=== PATIENT | female | born 1985 | race Caucasian/White ===

== ENCOUNTER 2017-07-24 12:31 | Emergency (ER) | payer OTHER, SELFPAY ==
[2017-07-24] MEDS ORDERED: Acetaminophen 325 MG/10.15 ML UDCUP ONE (12:59)
--- NOTE | 2017-07-24 14:15 | RAD ---
RADIOGRAPH CHEST 2 VIEWS: HISTORY: 32-year-old female with fever, cough, and weakness. FINDINGS: The lungs are clear. The cardiomediastinal silhouette and hilar shadows are normal. There is no ple ural effusion. The osseous structures appear normal. There is no pneumothorax. IMPRESSION: Normal. juan POS: LAZARUS
[2017-07-24 14:28] LABS: #Lymphocytes 1.6 thou/uL (1.20-3.40); #Monocytes 0.4 thou/uL (0.11-0.59); #Neutrophils 3.8 thou/uL (1.40-6.50); %Basophils 0.5 % (0.0-1.0); %Eosinophils 0.3 % (0.0-10.0); %Lymphocytes 27.8 % (21.0-51.0); %Monocytes 6.3 % (0.0-10.0); Hemoglobin 13.6 g/dL (12.0-16.0); Mean Corpuscular HGB CONC 33.8 g/dL (32.0-36.0); Mean Corpuscular Hemoglobin 30.4 pg (27.0-31.0); Mean Corpuscular Volume 89.8 fl (81.0-99.0); Mean Platelet Volume 8.1 fL (7.4-10.4); Platelet Count 182 thou/uL (130-400); RBC Distribution Width 12.1 % (11.5-14.5); Red Blood Cell (RBC) Count 4.49 mill/uL (4.20-5.40); White Blood Cell (WBC) Count 5.8 thou/uL (4.8-10.8)
[2017-07-24] MEDS ORDERED: Dexamethasone 10 MG/ML VIAL ONE (14:30)
[2017-07-24 14:49] LABS: ALT (SGPT) 19 U/L (8-55); AST (SGOT) 26 U/L (5-34); Albumin 3.7 g/dL (3.5-5.0); Alkaline Phosphatase 62 U/L (40-150); Anion Gap 11 mmol/L (10-20); BUN (Urea Nitrogen) 4 mg/dL (7.0-18.7); Bilirubin, Total 0.3 mg/dL (0.2-1.2); Calc. Creatinine Clearance 0 mL/min (70-130); Calcium 8.4 mg/dL (7.8-10.44); Carbon Dioxide 25 mmol/L (22-29); Chloride 103 mmol/L (98-107); Estimated GFR-MDRD Greater than 90; Globulin 2.7 g/dL (2.4-3.5); Glucose 106 mg/dL (70-105); Lipase 17 U/L (8-78); Potassium 3.5 mmol/L (3.5-5.1); Protein, Total 6.4 g/dL (6.0-8.3); Sodium 135 mmol/L (136-145)
[2017-07-24] MEDS ORDERED: Ketorolac Tromethamine 30 MG/ML VIAL ONE (15:51)
== END 2017-07-24 16:11 | disposition home or self-care (01) ==
LOC: ERS 12:31
DX: J11.1 Influenza due to unidentified influenza virus with other respiratory manifestations (principal); G43.909 Migraine, unspecified, not intractable, without status migrainosus; F31.9 Bipolar disorder, unspecified; F90.9 Attention-deficit hyperactivity disorder, unspecified type; F17.210 Nicotine dependence, cigarettes, uncomplicated; Z79.899 Other long term (current) drug therapy; Z87.442 Personal history of urinary calculi
CPT/HCPCS: 36415; 71046; 80053; 83605; 83690; 85025; 87081; 87430; 87804; 96361; 96374; J1100; J1885

== ENCOUNTER 2018-11-05 22:10 | Observation (INO) | payer BC, SELFPAY ==
[2018-11-05] MEDS ORDERED: Ketorolac Tromethamine 30 MG/ML VIAL ONE (22:34)
[2018-11-05 23:05] LABS: #Eosinphils 0.1 thou/uL (0.0-0.7); #Lymphocytes 2.5 thou/uL (1.20-3.40); #Monocytes 1.2 thou/uL (0.11-0.59); #Neutrophils 9.2 thou/uL (1.40-6.50); %Basophils 0.1 % (0.0-1.0); %Eosinophils 0.7 % (0.0-10.0); %Lymphocytes 19.2 % (21.0-51.0); %Monocytes 9.5 % (0.0-10.0); %Neutrophils 70.5 % (42.0-75.0); Hemoglobin 12.9 g/dL (12.0-16.0); Mean Corpuscular HGB CONC 34.2 g/dL (32.0-36.0); Mean Corpuscular Volume 90.6 fL (78.0-98.0); Mean Platelet Volume 8.1 fL (7.4-10.4); Platelet Count 281 thou/uL (130-400); RBC Distribution Width 11.4 % (11.5-14.5); Red Blood Cell (RBC) Count 4.15 mill/uL (4.20-5.40); White Blood Cell (WBC) Count 13.1 thou/uL (4.8-10.8)
[2018-11-05 23:08] LABS: Bilirubin Negative (Negative); Blood, Urine Small (Negative); Clarity CLEAR (Clear); Glucose, Urine (Dipstick) Negative (Negative); Leukocyte Small (Negative); Nitrite Negative (Negative); Pregnancy Test - Urine (BHCG) Negative (Negative); Pregu Control Background? CLEAR/WHITE (CLR/WHITE); Pregu Control Bar Appear? YES (CONTROL BAR); Protein, Urine (Dipstick) Trace mg/dL (Neg-Trace); Specific Gravity 1.017 (1.002-1.036); Specific Gravity, Urine 1.017 (1.002-1.036); Urobilinogen 0.2 mg/dL (0.2-1.0)
[2018-11-05 23:09] LABS: Bacteria/HPF 1+ HPF (None Seen); Hyaline Casts/LPF 0-3 HYALINE CAST LPF (0-3 Hyaline); Pathc Cast-AUWi Flag 0.13 (0-2.49); Squamous Epithelial 0-3 HPF (0-3); WBC/HPF 21-50 HPF (0-3)
[2018-11-05 23:25] LABS: ALT (SGPT) 8 U/L (8-55); AST (SGOT) 8 U/L (5-34); Alkaline Phosphatase 81 U/L (40-150); Anion Gap 12 mmol/L (10-20); BUN (Urea Nitrogen) 9 mg/dL (7.0-18.7); Bilirubin, Total 0.5 mg/dL (0.2-1.2); Calc. Creatinine Clearance 0 mL/min (70-130); Calcium 9.4 mg/dL (7.8-10.44); Carbon Dioxide 25 mmol/L (22-29); Chloride 102 mmol/L (98-107); Estimated GFR-MDRD Greater than 90; Globulin 3.1 g/dL (2.4-3.5); Glucose 101 mg/dL (70-105); Lipase 14 U/L (8-78); Potassium 3.5 mmol/L (3.5-5.1); Protein, Total 7.1 g/dL (6.0-8.3); Sodium 135 mmol/L (136-145)
--- NOTE | 2018-11-05 23:45 | CT ---
Noncontrast enhanced images abdomen pelvis. HISTORY: Flank pain. Noncontrast enhanced images of the abdomen pelvis demonstrates the lung bases to be unremarkable. No evidence of free intraperitoneal air seen. The liver and spleen are unremarkable. The gallbladder is been surgically removed. Adrenal glands unremarkable. The pancreas is unremarkable. The kidneys contain numerous bilateral renal calculi. Neither right or left ureters is significantly distended. The left ureter along its entire course is not completely visualized. There is a approximately 5 mm left area of calcification possibly in the mid to distal left ureter or outside of it. I cannot confirm definitively as the surrounding soft tissues obscure portions of the left ureter. If there is concern for obstructing renal calculi correlate with CT IVP and urological consul tation. No evidence of pelvic lymphadenopathy seen. IMPRESSION: possible left pelvic or ureteral calculi.
[2018-11-06] MEDS ORDERED: Morphine 2 MG/ML SYRINGE ONE (00:21)
[2018-11-06] MEDS: Sodium Chloride 0.9% 1,000 ML IV SCH ×3 (02:01→17:19)
[2018-11-06] MEDS: Morphine 4 MG/ML VIAL SLOW IVP PRN ×3 (07:22→10:35)
[2018-11-06] MEDS ORDERED: Hydrocortisone Sod Succ/PF 100 mg/2 ml Vial IVP SCH ×2 (08:15→12:15)
[2018-11-06] MEDS ORDERED: diphenhydrAMINE 50 MG/ML VIAL IVP SCH ×2 (08:15→12:15)
[2018-11-06] MEDS ORDERED: Non-Formulary Item 1 EACH (Dextroamphetamine/Amphetamine [Adderall 20 Mg Tablet] 20 MG) PO SCH (09:00)
[2018-11-06] MEDS ORDERED: Non-Formulary Item 1 EACH (Bupropion Hcl [Wellbutrin Xl] 300 MG) PO SCH (09:00)
--- NOTE | 2018-11-06 12:35 | PRG ---
consult DATE OF SERVICE: 11/06/2018 HISTORY OF PRESENT ILLNESS: Ms. Rizzo is a 33-year-old female with prior history of kidney stones, she presented with 3- to 4-day history of left lower quadrant and flank pain. She previously underwent stone surgery back in 2006 or 2007. She states that this was performed at [facility] with Dr. Martin. Has not seen him subsequently. She had history of fever of 102 at home, her current vital signs are stable. Urine culture has been obtained by the emergency room. CT in the emergency room demonstrated multiple bilateral renal calculi, left greater than right, there is a left ureteral calculi; however, no evidence of hydronephrosis , 5 mm at the level of S1 to ureter. She continues to have some discomfort, however , currently managed. She is admitted due to UA demonstrating 1+ bacteria for ureteral stent placement given she has a ureteral stone with likely infection process. Denies dysuria, gross hematuria, or recurrent UTI symptoms. PAST MEDICAL HISTORY: Include; 1. History of kidney stones. 2. Fibromyalgia. 3. Migraines. 4. Asthma. SURGICAL HISTORY: 1. Tubal ligation. 2. Sinus. 3. Left ankle. 4. Cholecystectomy. 5. Tonsillectomy. 6. Prior history of ESWL vs ureteroscopy by Dr. Martin in the remote past. ALLERGIES: SHE IS ALLERGIC TO NAPROXEN, CEFPROZIL, IODINE, LATEX, PINEAPPLE, SHELLFISH DERIVATIVES. PER THE PATIENT, IODINE WAS USED TOPICAL AND SHE DID BREAK OUT ONTO A RASH. SHE IS UNSURE REGARDING IODINE INTRAVENOUS ALLERGY. SOCIAL HISTORY: She is single, recently . G3, P3. Occasional smoker. She is a regional safety manager at [employer] HOME MEDICATIONS: Include; 1. Wellbutrin. 2. Albuterol. PHYSICAL EXAMINATION: VITAL SIGNS: On presentation, she is afebrile. Vital signs are stable. GENERAL: The patient is resting comfortably, easily arousable; however, appears somewhat fatigued. HEENT: Grossly unremarkable. HEART: Regular rate. LUNGS: Clear. ABDOMEN: Soft. Subjective discomfort in the left lower quadrant. : Deferred at this time. EXTREMITIES: No cyanosis, clubbing, or edema. NEUROLOGIC: No gross focal deficits. PSYCHIATRIC: Appears to be appropriate and intact. PERTINENT LABORATORY DATA: White count 13, hemoglobin 12, and platelet 281. Creatinine 0.7. UA demonstrates 1+ bacteria, 7-10 rbc's, 20-50 wbc's, no epithelials, negative nitrites, and trace leukocytes. Culture is pending. She was provided Rocephin from the emergency room and currently on ciprofloxacin. PERTINENT IMAGING STUDIES: CT of the abdomen and pelvis stone protocol, which I reviewed myself, demonstrates bilateral renal calculi, a left 5 mm calcific density in the mid distal ureter with no hydronephrosis. Per my review, the right kidney has some hyperdensity consistent with early nephrocalcinosis, right punctate renal lithiasis. No evidence of right hydronephrosis. Left kidney has numerous punctate renal calculi about 6-7 in number, largest in the left lower pole about 4 mm, left distal S2 5 mm stone. IMPRESSION AND PLAN: Ms. Rizzo is a 33-year-old female with history of recurrent kidney stone, admitted for left flank pain with UA demonstrating bacteria, consistent with urinary tract infection. She has a 5-mm left distal ureteral stone, although it is not hydronephrotic, she has discomfort in presence of urinary tract infection. It would be prudent to place a ureteral stent as impending ureteral obstruction can occur, resulting in SIRS picture. Moreover, she has a history of fever. She desires to proceed with ureteral stent and is in full understanding regarding staged ureteroscopy and laser lithotripsy at a later date. She is n.p.o. for cysto and stent placement today. Continue antibiotics until culture finalized for sensitivity Job ID: [id number] [facility]
[2018-11-06] MEDS ORDERED: Iothalamate Meglumine 60% 50 ML VIAL FS ONE (13:01)
[2018-11-06] MEDS ORDERED: Fentanyl 100 MCG/2 ML VIAL ONE (13:02)
[2018-11-06] MEDS ORDERED: Midazolam HCl 2 mg/2 ml Vial ONE (13:04)
[2018-11-06] MEDS ORDERED: Ioversol 68 % 50 ML VIAL ONE (13:23)
[2018-11-06] MEDS ORDERED: HYDROcodone/Acetaminophen 5/325 mg Tablet PO PRN (13:38)
[2018-11-06] MEDS ORDERED: Mag-Al 1200 mg/1200 mg/30 ML UDCUP PO PRN (13:38)
[2018-11-06] MEDS ORDERED: Phenazopyridine HCl 97.5 MG TABLET PO PRN (13:38)
[2018-11-06] MEDS ORDERED: Oxybutynin 5 MG TAB PO PRN (13:38)
[2018-11-06] MEDS ORDERED: Bisacodyl 10 MG SUPP PR PRN (13:38)
[2018-11-06] MEDS ORDERED: Phenazopyridine HCl 97.5 MG TABLET ONE (13:42)
--- NOTE | 2018-11-06 13:50 | RAD ---
RETROGRADE PYELOGRAM: HISTORY: Left ureteral stent. Renal calculi. FINDINGS: Two portable fluoroscopic spot images are preserved for interpretation. There is contrast injection into a nondilated left upper collecting system and follow-up imaging document left ureteral stent justyn cement. IMPRESSION: 1. Left ureteral stent placement. 2. Nondilated left upper collecting system. POS: OFF
[2018-11-06] MEDS ORDERED: PACU-Morphine 4MG/ML VIAL SLOW IVP PRN (13:53)
[2018-11-06] MEDS ORDERED: Ondansetron HCl/PF 4 MG/2 ML Vial IVP PRN (13:53)
[2018-11-06] MEDS: Bupropion 150 MG XL TAB PO SCH (14:46)
[2018-11-06] MEDS ORDERED: Adderall 20 Mg Tablet PO SCH (15:00)
[2018-11-06] MEDS ORDERED: diphenhydrAMINE 50 MG/ML VIAL ONE (15:15)
[2018-11-06] MEDS ORDERED: Metoclopramide HCl 10 MG/2 ML VIAL ONE (15:15)
[2018-11-06] MEDS ORDERED: Lidocaine 1% PF 5 ML VIAL ONE (15:15)
[2018-11-06] MEDS ORDERED: PROPOFOL 200 MG/20 ML VIAL ONE (15:15)
[2018-11-06] MEDS ORDERED: Ondansetron PF 4 MG/2 ML Vial ONE (15:15)
[2018-11-06] MEDS ORDERED: Dexamethasone 20 MG/5 ML VIAL ONE (15:15)
--- NOTE | 2018-11-06 16:25 | OP ---
DATE OF PROCEDURE: 11/06/2018 PREOPERATIVE DIAGNOSES: 1. History of recurrent kidney stone, presents with left flank pain, history of fever, left mid ureteral calculi at the level of S2 ureter. 2. Nonobstructing bilateral renal calculi: Right hyperdense nephrocalcinosis, non-calyceal, right punctate renal lithiasis, left 6-7 punctate renal calculi, largest in the lower pole, 4 mm. 3. Left S2 ureteral stone, measuring 5 mm. POSTOPERATIVE DIAGNOSES: 1. History of recurrent kidney stone, presents with left flank pain, history of fever, left mid ureteral calculi at the level of S2 ureter. 2. Nonobstructing bilateral renal calculi: Right hyperdense nephrocalcinosis, non-calyceal, right punctate renal lithiasis, left 6-7 punctate renal calculi, largest in the lower pole, 4 mm. 3. Left S2 ureteral stone, measuring 5 mm. PROCEDURES PERFORMED: 1. Cystoscopy. 2. Left retrograde pyelogram. 3. A 6 x 26 double-J ureteral stent placement. ANESTHESIA: LMA. COMPLICATIONS: None apparent. DISPOSITION: To recovery room in stable condition. INDICATIONS FOR PROCEDURE AND HISTORY: Ms. Rizzo is a 33-year-old female, who presented to the emergency room due to 3- to 4-day history of left lower quadrant abdominal discomfort, although CT demonstrates no evidence of hydronephrosis. There is evidence of ureteral calculi at the level of the mid ureter S2 level, with multiple bilateral nonobstructing renal calculi. She has a history of fever of 102. Her labs and vital signs are stable and has been provided broad-spectrum antibiotic therapy and advised regarding stent placement. This is concerned regarding UTI component. Although the stone appears to be nonobstructing, as she has possibility of progressing to SIRS if with non-progression of ureteral calculi. She desired to proceed with stent placement. Risks and complications of the procedure were reviewed with her in detail including, but not limited to, bleeding, pain, infection, injury to adjacent organs, urosepsis. She is in full understanding regarding secondary procedure when urine culture finalized and negative. DESCRIPTION OF PROCEDURE: After an informed consent was signed, the patient was taken to the operating room and placed in a dorsal lithotomy position with the genital area prepped and draped in the usual surgical sterile fashion. A 21- Trinidadian cystoscope was utilized for cystoscopy, which demonstrated normal urethra. Bladder was entered. The UOs were normal in position. The left retrograde pyelogram was performed with Optiray diluted with an open-ended catheter. There was a filling defect at the level of inferior SI joint, consistent with the CT. There was no evidence of hydronephrosis. A 0.035 Sensor wire was placed into the left upper pole and a 6 x 26 double-J ureteral stent was passed without difficulty. She tolerated the procedure well. She will be observed overnight, await final urine culture to be finalized. Continue broad-spectrum antibiotics. We will repeat urine culture likely tomorrow. If negative, we may be able to proceed with ureteroscopy and laser lithotripsy next Sunday of her ureteral calculi as well as possible concomitant treatment of her left lower pole stone. Job ID: [id number] [facility]
[2018-11-06] MEDS: HYDROcodone/Acetaminophen 5/325 mg Tablet PO PRN ×2 (17:19→21:16)
[2018-11-06] MEDS: Famotidine 20 MG TAB PO SCH (21:15)
[2018-11-06] MEDS: Docusate 100 MG CAP PO SCH (21:16)
[2018-11-06 21:35] LABS: Bacteria/HPF None Seen HPF (None Seen); Clarity SL (Clear); Hyaline Casts/LPF 0-3 HYALINE CAST LPF (0-3 Hyaline); RBC/HPF GREATER THAN 50-TNTC HPF (0-3); Specific Gravity, Urine 1.015 (1.005-1.030); Squamous Epithelial 0-3 HPF (0-3); WBC/HPF 21-50 HPF (0-3)
[2018-11-06 21:36] LABS: Bilirubin Negative (Negative); Blood, Urine Large (Negative); Glucose, Urine (Dipstick) 100 mg/dL (Negative); Leukocyte Small (Negative); Nitrite Negative (Negative); Protein, Urine (Dipstick) 100 mg/dL (Neg-Trace); Urobilinogen 0.2 mg/dL (0.2-1.0)
--- NOTE | 2018-11-06 22:23 | HP ---
PRIMARY CARE PHYSICIAN: Dr. Olivia Byers. CHIEF COMPLAINT: Abdominal and flank pain. HISTORY OF PRESENT ILLNESS: This is a 33-year-old female with a history of previous kidney stones, who came in with left abdomen and left flank and left back pain starting about 3-4 days ago, associated with fever up to 102. She did have a little bit of cough and sore throat and runny nose as well. The patient was evaluated in the emergency room. She had evidence of urinary tract infection and also had a CT scan that showed 5 mm likely ureteral calculi on the left without any hydronephrosis. Dr. Woodward was consulted from the emergency room. The patient was put in observation in the hospital. She was given ciprofloxacin in the emergency room along with morphine and Toradol to take care of the pain. Then, Dr. Woodward did take the patient down for uroscopy today. She did put in a left ureteral stent. The patient tolerated that well and is just back to the room now when I went to go examine her. She is a little groggy from the sedation medications from the procedure, but otherwise has a complete resolution of her pain. PAST MEDICAL HISTORY: 1. Previous kidney stones. 2. Fibromyalgia. 3. Asthma. 4. Migraine headaches. PAST SURGICAL HISTORY: 1. Tubal ligation. 2. Sinus surgery. 3. Left ankle surgery. 4. Cholecystectomy. 5. Tonsillectomy. 6. Kidney stone surgery of some sort. PSYCHIATRIC HISTORY: Bipolar disorder and ADHD. SOCIAL HISTORY: The patient reports she smokes occasional cigarettes. Rare alcohol. She denies current drug use though has a history of marijuana and methamphetamine abuse in her chart from previously. FAMILY HISTORY: Positive for coronary artery disease and stroke. ALLERGIES: 1. NAPROXEN. 2. CEFZIL. 3. IODINE. 4. LATEX. 5. PINEAPPLE. 6. SHELLFISH. 7. IMITREX. CURRENT MEDICATIONS: 1. Wellbutrin XL 300 mg each morning. 2. Adderall 20 mg 3 times a day. REVIEW OF SYSTEMS: CONSTITUTIONAL: See HPI. EYES: No double vision or blurred vision. ENT: See HPI. CARDIOVASCULAR: No chest pain or palpitations. PULMONARY: See HPI. No shortness of breath. GASTROINTESTINAL: See HPI. No nausea or vomiting. No diarrhea or constipation. GENITOURINARY: No dysuria or hematuria. MUSCULOSKELETAL: No muscle aches or joint pains other than HPI. SKIN: No rashes or other lesions noted. PHYSICAL EXAMINATION: VITAL SIGNS: Blood pressure 111/65, pulse 71, respirations 20, O2 saturation 98% on room air, temperature 98.7. GENERAL: This is a well-developed, well-nourished female, who is groggy after the procedure, but otherwise in no distress. HEENT: Pupils are equal, round, and reactive to light. Oropharynx is clear without lesions, erythema, or exudate. NECK: Supple. No lymphadenopathy. No thyroid nodules or enlargement. HEART: Regular rate and rhythm. No murmurs, rubs, or gallops. LUNGS: Clear to auscultation bilaterally. No wheezes, crackles, or rhonchi. ABDOMEN: Soft, tender to palpation in the left upper and left lower quadrants without any guarding or rebound tenderness. No masses. No hepatosplenomegaly. Normoactive bowel sounds. EXTREMITIES: No clubbing, cyanosis, or edema. SKIN: No rashes or other lesions noted. NEUROLOGIC: The patient seems to be moving all extremities equally and has no facial droop. LABORATORY DATA: CBC with a white blood cell count of 13,000 with a normal differential, otherwise normal. Complete metabolic panel is notable only for sodium of 135, the rest was completely normal. Urinalysis positive for small blood, small leukocyte esterase, 7 to 10 rbc's, 21 to 50 wbc's and 1+ bacteria. Negative urine test. Her urine culture is pending. CT of the abdomen and pelvis from the emergency room shows possible left pelvic ureteral calculi, though cannot be completely certain as the surrounding soft tissues obscure portions of the left ureter. Retrograde pyelogram during the procedure today shows a left ureteral stent placement with nondilated left upper collecting system. ASSESSMENT AND PLAN: 1. 2. Complicated urinary tract infection due to the kidney stone, currently on Levaquin from Dr. Woodward. We will continue this. The patient is growing back Escherichia coli 50,000 to 75,000 CFUs per mL. Awaiting susceptibilities. 3. Ureterolithiasis, status post stent placement. 4. Bipolar disorder. 5. Attention deficit hyperactivity disorder. 6. Gastrointestinal prophylaxis. We will put the patient on Pepcid while she is in the hospital. 7. Deep venous thrombosis prophylaxis, the patient on SCDs while in bed. 8. Code status. The patient is a full code. Her closest relative who is in the chart is her brother, Rocky Adam. Job ID: [id number]
[2018-11-07] MEDS: Sodium Chloride 0.9% 1,000 ML IV SCH (03:06)
[2018-11-07] MEDS: HYDROcodone/Acetaminophen 5/325 mg Tablet PO PRN ×3 (04:38→13:38)
[2018-11-07 08:18] LABS: Anion Gap 10 mmol/L (10-20); BUN (Urea Nitrogen) 7 mg/dL (7.0-18.7); Calc. Creatinine Clearance 0 mL/min (70-130); Calcium 8.7 mg/dL (7.8-10.44); Carbon Dioxide 25 mmol/L (22-29); Chloride 109 mmol/L (98-107); Estimated GFR-MDRD Greater than 90; Glucose 116 mg/dL (70-105); Potassium 3.8 mmol/L (3.5-5.1); Sodium 140 mmol/L (136-145)
[2018-11-07 08:19] LABS: #Lymphocytes 1.9 thou/uL (1.20-3.40); #Monocytes 0.9 thou/uL (0.11-0.59); #Neutrophils 8.4 thou/uL (1.40-6.50); %Eosinophils 0.1 % (0.0-10.0); %Lymphocytes 16.7 % (21.0-51.0); %Monocytes 8.2 % (0.0-10.0); %Neutrophils 75.1 % (42.0-75.0); Hemoglobin 11.2 g/dL (12.0-16.0); Mean Corpuscular HGB CONC 33.9 g/dL (32.0-36.0); Mean Corpuscular Hemoglobin 31.4 pg (27.0-31.0); Mean Corpuscular Volume 92.6 fL (78.0-98.0); Mean Platelet Volume 8.6 fL (7.4-10.4); Platelet Count 269 thou/uL (130-400); RBC Distribution Width 11.4 % (11.5-14.5); Red Blood Cell (RBC) Count 3.58 mill/uL (4.20-5.40); White Blood Cell (WBC) Count 11.1 thou/uL (4.8-10.8)
--- NOTE | 2018-11-07 08:19 | PRG ---
DATE OF SERVICE: 11/07/2018 SUBJECTIVE: The patient looking well, she states that she feels significantly better. OBJECTIVE: VITAL SIGNS: Stable. She is afebrile. ABDOMEN: Soft, nontender, nondistended. LABORATORY DATA: a.m. labs are pending. Repeat UA demonstrates no evidence of bacteria, 0 to 3 epithelials. Repeat urine culture is pending. Urine culture on admission demonstrates E coli pansensitive. patient currently on ciprofloxacin. IMPRESSION AND PLAN: A 33-year-old female with history of recurrent kidney stone, presented with left lower quadrant pain, history of fever, postop day #1, status post cysto, left retrograde, 6 x 26 stents. As urine culture sensitivities finalized, the patient is cleared from perspective to be discharge to home. Please discharge the patient with ciprofloxacin 500 mg one p.o. b.i.d. for seven days. Inform the patient that if final urine culture negative, which I anticipate as there is no bacteria component. We will proceed with ureteroscopy, laser lithotripsy of her ureteral renal calculi next Sunday. Upon discharge, the patient is to transition for outpatient surgery registration this afternoon. We will send outpatient orders to day stay. Questions encouraged and answered. She agrees. If urine culture demonstrates persistent bacteriuria of concern, I will contact the patient next week to defer surgery if needed. Job ID: [id number] [facility]
--- NOTE | 2018-11-07 08:28 | PDOC.PN ---
- Subjective Encounter Start Date: 11/07/18 Encounter Start Time: 09:30 Subjective: Patient with improvement in symptoms. Still with left flank/back pain. -: No fever. No N/V. No dysuria. Urinating a little more frequently now. - Objective MAR Reviewed: Yes Vital Signs & Weight: Vital Signs (12 hours) Temp Pulse Resp BP BP Pulse Ox 11/07/18 07:50 98.2 F 60 16 101/58 L 97 11/07/18 04:30 98.0 F 50 L 16 100/58 L 99 11/06/18 23:05 65 16 106/63 96 I&O: 11/06/18 11/07/18 11/08/18 06:59 06:59 06:59 Intake Total 1650 Output Total 1650 Balance 0 Result Diagrams: 11/07/18 07:22 11/07/18 07:22 Phys Exam - Physical Examination Constitutional: NAD HEENT: moist MMs Respiratory: no wheezing, no rales, no rhonchi Cardiovascular: RRR, no significant murmur Gastrointestinal: soft, positive bowel sounds TTP left abdomen, left CVA tenderness to percussion Neurological: non-focal, moves all 4 limbs Psychiatric: normal affect, A&O x 3 Dx/Plan (1) Complicated UTI (urinary tract infection) Code(s): N39.0 - URINARY TRACT INFECTION, SITE NOT SPECIFIED Status: Acute Comment: pansensitive E. coli, will need 7 days of Cipro, cleared for d/c by urology (2) Nephrolithiasis Status: Acute Comment: s/p left ureteral stent, needs o/p f/u with Dr. Gomez - Plan cont current plan of care, continue antibiotics d/c home today * . - Discharge Day Encounter end time: 09:45
[2018-11-07 08:37] LABS: INR-International Normal Ratio 1.1; PTT 31.8 SEC (22.9-36.1); Prothrombin Time 13.8 SEC (12.0-14.7)
[2018-11-07] MEDS: Docusate 100 MG CAP PO SCH (08:38)
[2018-11-07] MEDS: Bupropion 150 MG XL TAB PO SCH (08:38)
[2018-11-07] MEDS: Famotidine 20 MG TAB PO SCH (08:39)
[2018-11-07 11:21] VITALS: BP 108/74; TEMP 98
--- NOTE | 2018-11-08 02:03 | DIS ---
DATE OF ADMISSION: 11/06/2018 DATE OF DISCHARGE: 11/07/2018 PRIMARY CARE PHYSICIAN: Dr. Olivia Byers. REASON FOR ADMISSION: UTI with nephrolithiasis. DIAGNOSES AT DISCHARGE: 1. Complicated urinary tract infection with Escherichia coli, pansensitive. 2. Nephrolithiasis with left ureteral stone, status post left ureteral stent. PROCEDURES: 1. CT abdomen and pelvis showing possible left ureteral calculi 5 mm, most likely in the mid to distal left ureter without any hydronephrosis. 2. Left ureteral stent placement with postoperative retrograde pyelogram showing a left ureteral stent and nondilated left upper collecting system. CONSULTATIONS: Urology, Dr. Woodward. SUMMARY OF HOSPITAL COURSE: This is a 33-year-old female with a history of previous kidney stones, who came in with left abdomen and left flank pain for about 3-4 days and a fever up to 102. She was noted to have a likely 5 mm left ureteral calculi without any hydronephrosis or sequela of pyelonephritis. Dr. Woodward was consulted. The patient was given IV Cipro and levofloxacin, and admitted to the hospital. She had a left ureteral stent placed without complication. The patient grew back E coli from her urine which is sensitive to fluoroquinolones. On the day of discharge, the patient was cleared by Dr. Woodward for discharge and is supposed to follow up with her for definitive treatment of the stone with ureteroscopy and laser lithotripsy next week. DISCHARGE MANAGEMENT: Discharged home. FOLLOWUP: Follow up with Dr. Woodward as scheduled. ACTIVITY: As tolerated. DIET: Regular diet. MEDICATIONS: 1. Ciprofloxacin 500 mg twice a day for 7 days. 2. Tramadol 50 mg every 6 hours, 1-2 tablets as needed for pain, 20 tablets dispensed. Job ID: [id number]
== END 2018-11-07 15:57 | disposition home or self-care (01) ==
LOC: ERS 22:10 → 3SE 11-06 01:10
PROVIDERS: ADMIT Hospitalist; ATTEND Hospitalist
PROC: 0T778DZ Dilation of Left Ureter with Intraluminal Device, Via Natural or Artificial Opening Endoscopic (ICD-10-PCS; principal; 2018-11-07)
DX: N20.2 Calculus of kidney with calculus of ureter (principal); N39.0 Urinary tract infection, site not specified; B96.20 Unspecified Escherichia coli [E. coli] as the cause of diseases classified elsewhere; M79.7 Fibromyalgia; G43.909 Migraine, unspecified, not intractable, without status migrainosus; J45.909 Unspecified asthma, uncomplicated; F90.9 Attention-deficit hyperactivity disorder, unspecified type; F31.9 Bipolar disorder, unspecified; F17.210 Nicotine dependence, cigarettes, uncomplicated; Z79.899 Other long term (current) drug therapy; Z88.6 Allergy status to analgesic agent; Z88.8 Allergy status to other drugs, medicaments and biological substances; Z91.013 Allergy to seafood; Z91.018 Allergy to other foods; Z98.890 Other specified postprocedural states; Z91.040 Latex allergy status; Z91.041 Radiographic dye allergy status
CPT/HCPCS: 36415; 74176; 74420; 80048; 80053; 81001; 81003; 81015; 81025; 83690; 85025; 85610; 85730; 87077; 87086; 87186; 96361; 96365; 96366; 96367; 96374; 96375; 96376; C1758; C1769; G0378; J0744; J1100; J1200; J1720; J1885; J1956; J2001; J2250; J2270; J2405; J2704; J2765; J3010; Q9961; Q9967

== ENCOUNTER 2018-11-13 06:23 | Day surgery (SDC) | payer BC ==
[2018-11-07 10:44] VITALS: BMI 23.0
[2018-11-13] MEDS ORDERED: Levofloxacin 500 mg/D5W 100 ml Premix Bag ONE (07:23)
[2018-11-13] MEDS ORDERED: diphenhydrAMINE 50 MG/ML VIAL ONE (07:23)
[2018-11-13] MEDS ORDERED: Hydrocortisone Sod Succ/PF 100 mg/2 ml Vial ONE (07:27)
[2018-11-13] MEDS ORDERED: Gentamicin Sulfate 100 MG in Premix Bag 1 BAG IVPB SCH (07:45)
[2018-11-13] MEDS ORDERED: Fentanyl 100 MCG/2 ML VIAL ONE ×3 (07:58→10:20)
[2018-11-13] MEDS ORDERED: Midazolam HCl 2 mg/2 ml Vial ONE (09:01)
[2018-11-13] MEDS ORDERED: Ioversol 68 % 50 ML VIAL ONE (09:08)
[2018-11-13] MEDS ORDERED: SUGAMMADEX SODIUM 200 MG/2 ML VIAL ONE (09:44)
[2018-11-13] MEDS ORDERED: Ketorolac Tromethamine 30 MG/ML VIAL ONE (10:12)
[2018-11-13] MEDS ORDERED: Oxybutynin 5 MG TAB ONE (10:12)
[2018-11-13] MEDS ORDERED: Phenazopyridine HCl 97.5 MG TABLET ONE (10:13)
--- NOTE | 2018-11-13 10:51 | RAD ---
LEFT RETROGRADE UROGRAM: HISTORY: Ureteral stent replacement. COMPARISON: 11/06/2018. FINDINGS/IMPRESSION: Initial image demonstrates removal of the previously seen left ureteral stent with guidewire in place . The final image demonstrates a left ureteral stent in place with the proximal portion overlying th e expected location of the left renal collecting system and distal portion overlying the urinary blad lucas. No calculus is visualized along the course of the left ureter. Surgical clips overlie the right upper quadrant. Correlation with intraoperative findings is recommended. POS: Jose Alejandro
[2018-11-13] MEDS ORDERED: PROPOFOL 200 MG/20 ML VIAL ONE (13:40)
[2018-11-13] MEDS ORDERED: Dexamethasone 20 MG/5 ML VIAL ONE (13:40)
[2018-11-13] MEDS ORDERED: Naloxone HCl 0.4 mg/ml Vial ONE (13:40)
[2018-11-13] MEDS ORDERED: Glycopyrrolate 0.2 MG/ML 5 ML SYRINGE ONE (13:40)
[2018-11-13] MEDS ORDERED: Ondansetron PF 4 MG/2 ML Vial ONE (13:40)
[2018-11-13] MEDS ORDERED: Lidocaine 1% PF 5 ML VIAL ONE (13:40)
[2018-11-13] MEDS ORDERED: Rocuronium Bromide 10 MG/ML (10ML VIAL) ONE (13:40)
--- NOTE | 2018-11-13 16:10 | OP ---
DATE OF PROCEDURE: 11/13/2018 PREOPERATIVE DIAGNOSES: 1. A 33-year-old female with history of recurrent kidney stone, presented with Escherichia coli urinary tract infection, left 5 mm S2 ureteral stone. 2. Bilateral nonobstructing renal calculi: Right hyperdense nephrocalcinosis, noncalyceal, right punctate renal lithiasis, left 6-7 punctate renal calculi, largest in the lower pole x2 measuring about 4 mm. PROCEDURE PERFORMED: Cystoscopy, left retrograde pyelogram, 6 x 26 double-J ureteral stent exchange on Dangler, rigid ureteroscopy, laser lithotripsy, basket extraction of distal ureteral calculi. ANESTHESIA: General. COMPLICATIONS: None apparent. DISPOSITION: To recovery room in stable condition. SPECIMEN: Stone for chemical analysis. INDICATIONS FOR PROCEDURE AND HISTORY: Ms. Rizzo is a 33-year-old female, who presented to the emergency room due to left flank pain. CT demonstrated no hydronephrosis; however, left ureteral calculi S2. She subsequently did well with antibiotic therapy, she has been on quinolones due to Escherichia coli pansensitive. Repeat urine culture is negative and she presents for ureteroscopy laser lithotripsy. Risks, complications, and indications for the procedure was reviewed with her in detail including, but not limited to bleeding, pain, infection, injury to adjacent organs, urosepsis, possible secondary procedure was reviewed, and she desired to proceed without reservation. DESCRIPTION OF PROCEDURE: After an informed consent was signed, the patient was taken to the operating room, placed in dorsal lithotomy position with the genitalia prepped and draped in the usual surgical sterile fashion. A 21-Spanish cystoscope was utilized for cystoscopy and the pre-existing stent was removed to level of the meatus. A 0.35 Sensor wire was passed through the left ureteral stent and the stent completely removed. She was passively dilated from the stent, and I was able to pass the rigid ureteroscope to the level of the stone at the level of S2 just inferior to the pelvic inlet without difficulty. Using 200 micron laser fiber at this setting, we laser lithotripsied the stone to a smaller caliber. I was able to basket extract with a Zero Tip Nitinol basket atraumatically. This was sent for chemical analysis. A 6 x 26 double-J ureteral stent was passed over a guidewire. It was left on Dangler. Wire was then subsequently removed. Good coil was seen in the bladder and the kidney. Bladder emptied and the stent Dangler taped to the patient's pubic symphysis. She was discharged with [place] 5/325 #30 one to two p.o. q.8 hours p.r.n., oxybutynin 10 mg XL #20 one p.o. daily, Azo p.r.n.; ciprofloxacin until followup appointment, we will provide a course of 10 days given her prior history of UTI; Colace 100 mg one p.o. b.i.d. She will come to my office next week for stent pull on Dangler. Recommend stone metabolic workup after convalescence due to multiple renal calculi. Job ID: [id number] [facility]
== END 2018-11-13 12:50 | disposition home or self-care (01) ==
LOC: SDC 06:23
PROVIDERS: ATTEND Urology
PROC: 0TF68ZZ Fragmentation in Right Ureter, Via Natural or Artificial Opening Endoscopic (ICD-10-PCS; principal; 2018-11-13)
PROC: 0T768DZ Dilation of Right Ureter with Intraluminal Device, Via Natural or Artificial Opening Endoscopic (ICD-10-PCS; principal; 2018-11-13)
PROC: 0TC68ZZ Extirpation of Matter from Right Ureter, Via Natural or Artificial Opening Endoscopic (ICD-10-PCS; principal; 2018-11-13)
DX: N20.2 Calculus of kidney with calculus of ureter (principal)
CPT/HCPCS: 74420; 82365; 88300; J0131; J1100; J1200; J1580; J1720; J1885; J1956; J2001; J2250; J2310; J2405; J2704; J3010; Q9967

== ENCOUNTER 2018-11-20 13:54 | Emergency (ER) | payer BC ==
[2018-11-20] MEDS ORDERED: Ketorolac Tromethamine 30 MG/ML VIAL ONE (14:12)
[2018-11-20] MEDS ORDERED: Ondansetron PF 4 MG/2 ML Vial ONE (14:12)
[2018-11-20] MEDS ORDERED: Morphine 4 MG/ML VIAL ONE (14:27)
[2018-11-20 14:34] LABS: #Eosinphils 0.3 thou/uL (0.0-0.7); #Lymphocytes 3.3 thou/uL (1.20-3.40); #Monocytes 0.5 thou/uL (0.11-0.59); %Basophils 0.5 % (0.0-1.0); %Eosinophils 3.2 % (0.0-10.0); %Lymphocytes 40.7 % (21.0-51.0); %Monocytes 5.9 % (0.0-10.0); %Neutrophils 49.7 % (42.0-75.0); Hemoglobin 13.6 g/dL (12.0-16.0); Mean Corpuscular HGB CONC 33.6 g/dL (32.0-36.0); Mean Corpuscular Hemoglobin 30.7 pg (27.0-31.0); Mean Corpuscular Volume 91.4 fL (78.0-98.0); Mean Platelet Volume 7.5 fL (7.4-10.4); Platelet Count 379 thou/uL (130-400); RBC Distribution Width 11.6 % (11.5-14.5); Red Blood Cell (RBC) Count 4.42 mill/uL (4.20-5.40); White Blood Cell (WBC) Count 8.1 thou/uL (4.8-10.8)
[2018-11-20 14:58] LABS: ALT (SGPT) 11 U/L (8-55); AST (SGOT) 13 U/L (5-34); Albumin 4.1 g/dL (3.5-5.0); Alkaline Phosphatase 81 U/L (40-150); Anion Gap 12 mmol/L (10-20); BUN (Urea Nitrogen) 7 mg/dL (7.0-18.7); Bilirubin, Total 0.4 mg/dL (0.2-1.2); Calc. Creatinine Clearance 0 mL/min (70-130); Calcium 9.6 mg/dL (7.8-10.44); Carbon Dioxide 24 mmol/L (22-29); Chloride 104 mmol/L (98-107); Estimated GFR-MDRD 90; Glucose 97 mg/dL (70-105); Potassium 3.9 mmol/L (3.5-5.1); Protein, Total 7.1 g/dL (6.0-8.3); Sodium 136 mmol/L (136-145)
--- NOTE | 2018-11-20 15:15 | CT ---
EXAM: Abdomen and pelvic CT scan without contrast: HISTORY: Left-sided flank pain and chills with left-sided stent. COMPARISON: 11/05/2018 FINDINGS: The visualized lung bases are clear. Liver: Unremarkable. Gallbladder:Unremarkable. Pancreas:Unremarkable Spleen:Unremarkable. Adrenal glands:Unremarkable. Kidneys:Bilateral mostly small nonobstructing renal calculi. Left-sided ureteral stent with a 0.2 cm diameter calculus in the upper left ureter adjacent to the st ent. Mild dilatation of the left upper renal collecting system. No solid or cystic mass. No evidence for bowel obstruction. No CT evidence for acute appendicitis. The urinary bladder is unremarkable. No abscess, adenopathy, or abnormal fluid collection within the abdomen or pelvis. IMPRESSION: Nonobstructing bilateral renal calculi. Left ureteral stent. 0.2 cm diameter calculus in the left upper ureter adjacent to the stent.
[2018-11-20 16:14] LABS: Bilirubin Negative (Negative); Blood, Urine Large (Negative); Clarity CLOUDY (Clear); Glucose, Urine (Dipstick) Negative (Negative); Leukocyte Moderate (Negative); Nitrite Positive (Negative); Protein, Urine (Dipstick) 100 mg/dL (Neg-Trace); Specific Gravity, Urine 1.008 (1.002-1.036); pH, Urine 6.5 (5.0-9.0)
[2018-11-20 16:16] LABS: Hyaline Casts/LPF 4-6 HYALINE CAST LPF (0-3 Hyaline); Pathc Cast-AUWi Flag 0.95 (0-2.49); RBC/HPF GREATER THAN 50-TNTC HPF (0-3); Squamous Epithelial 0-3 HPF (0-3)
[2018-11-20 16:32] LABS: Bacteria/HPF 1+ HPF (None Seen); Renal Epithelial 0-3 HPF (0-3); Transitional Epithelial 0-3 HPF (0-3)
== END 2018-11-20 15:00 | disposition home or self-care (01) ==
LOC: ERS 13:54
DX: R10.9 Unspecified abdominal pain (principal); G43.909 Migraine, unspecified, not intractable, without status migrainosus; F31.9 Bipolar disorder, unspecified; F90.9 Attention-deficit hyperactivity disorder, unspecified type; F17.210 Nicotine dependence, cigarettes, uncomplicated; Z79.899 Other long term (current) drug therapy
CPT/HCPCS: 36415; 74176; 80053; 81003; 81015; 83605; 85025; 87086; 96361; 96374; 96375; J1885; J2270; J2405

== ENCOUNTER 2018-11-21 09:21 | Outpatient (CLI) | payer BC ==
[2018-11-21 10:13] LABS: BHCG - Serum Negative (NEGATIVE); Pregs Control Background? CLEAR/WHITE (CLR/WHITE); Pregs Control Bar Appear? YES (CONTROL BAR)
--- NOTE | 2018-11-21 20:11 | EKG ---
Test Reason : Blood Pressure : / mmHG Vent. Rate : 057 BPM Atrial Rate : 057 BPM P-R Int : 106 ms QRS Dur : 092 ms QT Int : 426 ms P-R-T Axes : 072 064 061 degrees QTc Int : 414 ms Sinus bradycardia with short AL Otherwise normal ECG When compared with ECG of 26-MAR-2014 20:05, Vent. rate has decreased BY [address] no longer depressed in Inferior leads Nonspecific T wave abnormality no longer evident in Inferior leads Confirmed by RAFAT WANG, SNick ([id number]) on 11/21/2018 8:11:26 PM Referred By: PENELOPE Confirmed By:DR. Amy DOUGLASS MD
== END 2018-11-21 09:22 | disposition home or self-care (01) ==
LOC: LABBT 09:21
PROVIDERS: ATTEND Urology
DX: Z01.818 Encounter for other preprocedural examination (principal); N20.2 Calculus of kidney with calculus of ureter
CPT/HCPCS: 84703; 93005; 93010

== ENCOUNTER 2018-11-27 08:09 | Day surgery (SDC) | payer BC ==
[2018-11-26 09:38] VITALS: BMI 22.8
[2018-11-27] MEDS ORDERED: Levofloxacin 500 mg/D5W 100 ml Premix Bag ONE (08:51)
[2018-11-27] MEDS ORDERED: Gentamicin Sulfate 100 MG in Premix Bag 1 BAG IVPB SCH (09:00)
[2018-11-27] MEDS ORDERED: diphenhydrAMINE 50 MG/ML VIAL ONE (09:30)
[2018-11-27] MEDS ORDERED: Hydrocortisone Sod Succ/PF 100 mg/2 ml Vial ONE (09:33)
--- NOTE | 2018-11-27 10:18 | RAD ---
ABDOMEN SUPINE: INDICATIONS: Preop. CORRELATION: CT from 11/20/2018. FINDINGS: The left double-pigtail ureteral stent is in place. Faint densities overly the left kidney, which pr obably correspond to the calculi noted on CT. The kidneys are obscured by bowel content, and the tin y calcifications are not well seen. The calcification along the upper stent, seen on CT, is not iden tified on this plain film. POS: [facility]
[2018-11-27] MEDS ORDERED: Iothalamate Meglumine 60% 50 ML VIAL FS ONE (10:37)
[2018-11-27] MEDS ORDERED: Fentanyl 100 MCG/2 ML VIAL ONE ×4 (10:37→14:14)
[2018-11-27] MEDS ORDERED: Midazolam HCl 2 mg/2 ml Vial ONE ×2 (11:46→12:02)
[2018-11-27] MEDS ORDERED: HYDROmorphone 0.5 MG/0.5 ML SYRINGE ONE (12:02)
[2018-11-27] MEDS ORDERED: Ioversol 68 % 50 ML VIAL ONE (12:33)
--- NOTE | 2018-11-27 13:17 | RAD ---
RETROGRADE PYELOGRAM: 11/27/18 HISTORY: Stent/stone removal. COMPARISON: 11/13/18. FINDINGS/IMPRESSION: Three portable fluoroscopic spot images are presented for interpretation. There is manipulation of th e left ureter with image documentation. A small left ureteral stone seen on prior CT scan is not defi nitely imaged on this study. POS: [facility]
[2018-11-27] MEDS ORDERED: SUGAMMADEX SODIUM 200 MG/2 ML VIAL ONE (13:22)
[2018-11-27] MEDS ORDERED: Phenazopyridine HCl 97.5 MG TABLET ONE ×2 (13:43→13:44)
[2018-11-27] MEDS ORDERED: Oxybutynin 5 MG TAB ONE (13:44)
[2018-11-27] MEDS ORDERED: Ondansetron HCl/PF 4 MG/2 ML Vial IVP PRN (14:51)
[2018-11-27] MEDS ORDERED: Promethazine HCl 25 MG/ML VIAL IM/IV PRN (14:51)
[2018-11-27] MEDS ORDERED: Non-Formulary Medication 1 EACH PO PRN (14:51)
--- NOTE | 2018-11-27 19:29 | OP ---
DATE OF PROCEDURE: 11/27/2018 PREOPERATIVE DIAGNOSES: 1. A 33-year-old female with history of recurrent kidney stone, status post left ureteroscopy, laser lithotripsy. 2. History of subjective fever and chills. Urine culture negative. 3. Residual left punctate 2 mm calcific density at the level of L3, multiple punctate left renal lithiases, largest in the lower pole about 4 to 5 mm. POSTOPERATIVE DIAGNOSES: 1. A 33-year-old female with history of recurrent kidney stone, status post left ureteroscopy, laser lithotripsy. 2. History of subjective fever and chills. Urine culture negative. 3. Residual left punctate 2 mm calcific density at the level of L3, multiple punctate left renal lithiases, largest in the lower pole about 4 to 5 mm. PROCEDURES PERFORMED: Cystoscopy, left retrograde pyelogram, 6 x 26 double-J ureteral stent exchange on Dangler, ureteroscopy, pyeloscopy, laser lithotripsy of renal calculi, basket extraction of left lower pole stone. ANESTHESIA: General. COMPLICATIONS: None apparent. DISPOSITION: To recovery room in stable condition. SPECIMEN: Stone for chemical analysis. INDICATIONS FOR PROCEDURE AND HISTORY: Ms. Rizzo is a 33-year-old female with history of recurrent kidney stones. She presented previously due to left lower quadrant abdominal pain with subjective history of fever. Urine culture negative. She underwent ureteroscopy, laser lithotripsy, extraction of distal ureteral calculi. She has multiple bilateral renal calculi, nonobstructing in nature. She was scheduled for stent pull on Dangler. However, presented to the ER the night before. CT demonstrated a punctate left proximal ureteral calculi just into the ureteral stent, 2 mm at the level of L3 with left renal calculi as above. She presents today for ureteroscopy, laser lithotripsy, and stone extraction. Repeat urine culture is negative. She has been on empiric prophylactic antibiotic therapy. She desires to proceed. Risks and complications and indications reviewed including but not limited to: Bleeding, pain, infection, injury to adjacent organs, urosepsis, and stricture formation. Questions were encouraged and answered. She desired to proceed without reservation. DESCRIPTION OF PROCEDURE: After an informed consent was signed, the patient was taken to the operating room, placed in a dorsal lithotomy position with the genital area prepped and draped in the usual surgical sterile fashion. She was provided broad-spectrum antibiotic therapy. A 22-Pakistani cystoscope was utilized for cystoscopy, which demonstrated normal urethra and bladder. The previous ureteral stent was removed to the level of the meatus on , and a 0.35 Sensor wire was passed to the left upper pole. At this time, I performed a rigid ureteroscopy to clear the mid to distal ureteral stone, which I did not see any stone nidus structure of concern. The ureter was surveyed to the level of L2. As I was unable to pass further, I then subsequently switched to a flexible ureteroscope. A 10-Pakistani dual-lumen access sheath was passed over the guidewire. Retrograde pyelogram demonstrated confirmation of both safety and working wire in the left kidney. The dual-lumen access sheath was subsequently removed. An 11/13- Pakistani x 28 cm navigator was passed through the working wire Super Stiff into the level of the proximal ureter. This passed without difficulty. Flexible ureteroscopy and pyeloscopy were performed. She had multiple Christo plaques consistent with recurrent stone former. There was a stone nidus adjacent to the papilla, which I laser lithotripsied. The rest of the stones were punctate. Christo plaques did not warrant treatment. In the left lower pole, there was a free-floating 4 to 5 mm stone. This was grabbed with a Zero Tip Nitinol basket and negotiated out the lower pole and extracted through the access sheath intact atraumatically. We then subsequently re-staged the collecting system demonstrating no stone nidus of concern or amenable to treatment. The ureter was then surveyed. I did not see any further stone nidus along the course of the ureter. Special attention was paid to the proximal ureter from L1 to L5. I did not see any stone nidus, and the distal ureter itself was clear of stone debris. She most likely passed that small stone that was seen on prior CT, status post ureteroscopy and laser lithotripsy. At this time , a 6 x 26 double-J ureteral stent was replaced over guidewire. We then subsequently removed the guidewire. As there was endoscopic clearance, I left the stent on . Bladder was completely emptied and the wire removed with good coil in the bladder and kidney. The stent string was taped to the patient's pubic symphysis , and she tolerated the procedure well and transported to the recovery room in stable condition. She will see me next week for stent pull on . She is discharged with Bactrim DS one p.o. b.i.d. for 10 days, oxybutynin XL #10, Azo p.r.n., Colace #30 p.r.n. Hailey 5/325, #30 refill prescription provided. She will return to clinic next Sunday for stent pull on Dangler. Job ID: [id number] MTDD
== END 2018-11-27 15:20 | disposition home or self-care (01) ==
LOC: SDC 08:09
PROVIDERS: ATTEND Urology
PROC: 0T778DZ Dilation of Left Ureter with Intraluminal Device, Via Natural or Artificial Opening Endoscopic (ICD-10-PCS; principal; 2018-11-27)
PROC: 0TF48ZZ Fragmentation in Left Kidney Pelvis, Via Natural or Artificial Opening Endoscopic (ICD-10-PCS; principal; 2018-11-27)
DX: N20.2 Calculus of kidney with calculus of ureter (principal); J45.909 Unspecified asthma, uncomplicated; F41.9 Anxiety disorder, unspecified; F31.9 Bipolar disorder, unspecified; F17.210 Nicotine dependence, cigarettes, uncomplicated; Z87.442 Personal history of urinary calculi; Z98.890 Other specified postprocedural states; Z88.6 Allergy status to analgesic agent; Z88.1 Allergy status to other antibiotic agents; Z91.041 Radiographic dye allergy status; Z91.040 Latex allergy status; Z91.013 Allergy to seafood; Z88.8 Allergy status to other drugs, medicaments and biological substances; Z91.018 Allergy to other foods; Z79.899 Other long term (current) drug therapy
CPT/HCPCS: 74018; 74420; 82365; 88300; C1758; C1769; J1170; J1200; J1580; J1720; J1956; J2250; J3010; Q9961; Q9967

== ENCOUNTER 2019-04-24 14:27 | Outpatient (CLI) | payer BC ==
--- NOTE | 2019-04-24 15:13 | ULT ---
Exam: Bilateral renal ultrasound HISTORY: Recurrent renal calculi. COMPARISON: None FINDINGS: Right kidney: Normal cortical echotexture. No hydronephrosis. Possible nonobstructing echogenic foci in the pelvis. Swatcher focus measures 0.6 cm and is in the upper pole. Focus appears to be cortical and may represent nephrocalcinosis Right kidney measurements: 3.7 x 10.7 x 5.4 cm. Left kidney: Normal cortical echotexture. No hydronephrosis. Echogenic focus in the left renal pelvis measures 0.6 cm and may represent a nonobstructing calculus. Left kidney measurements 4.4 x 4.6 x 11.0 cm. Urinary bladder: Normal mucosa. Bladder uterine jets are identified. IMPRESSION: 1. Echogenic foci in the left or right renal pelvis/cortex. Correlate for nephrocalcinosis versus nep hrolithiasis. No evidence of hydronephrosis.
--- NOTE | 2019-04-24 15:17 | RAD ---
ONE VIEW ABDOMEN: HISTORY: Recurrent renal calculi. FINDINGS: Surgical clips in the right upper quadrant are redemonstrated. Interval removal of a left ureteral stent. Nonspecific bowel gas pattern. No suspicious densities in the abdomen and pelvis. Stable phlebolith i n the right hemipelvis. IMPRESSION: No radiographic evidence of nephrolithiasis or ureterolithiasis. No calcification along the course of the left ureteral stent which has been removed in the interim. Transcribed Date/Time: 04/24/2019 3:25 PM
== END 2019-04-24 14:28 | disposition home or self-care (01) ==
LOC: BICULT 14:27
PROVIDERS: ATTEND Urology
DX: N20.0 Calculus of kidney (principal)
CPT/HCPCS: 36415; 74018; 76770; 80048; 81001; 83970; 84550; 87086

== ENCOUNTER 2019-05-19 08:59 | Outpatient (CLI) | payer BC ==
--- NOTE | 2019-05-19 10:13 | CT ---
CT ABDOMEN AND PELVIS WITHOUT CONTRAST: HISTORY: Calculus of kidney. Right flank pain. COMPARISON: 11/20/2018 FINDINGS: Absence of oral and IV contrast reduces the sensitivity of the exam, particularly for evaluation of s olid organs involved. There has been interval removal of the left-sided ureteral stent noted on the previous study. Bilater al renal calculi are again seen. These are more numerous in the left kidney, measuring up to 3 mm. No calculi are seen in the ureters or the urinary bladder. No hydroureteronephrosis is noted on either side. The patient is post cholecystectomy. No free air or free fluid is seen in the abdomen or pelvis. Uter us and ovaries are present. There is fecal material in the colon. No osteolytic or osteoblastic lesio ns are seen. IMPRESSION: Nonobstructing bilateral renal calculi. POS: [facility]
== END 2019-05-19 09:00 | disposition home or self-care (01) ==
LOC: CT 08:59
PROVIDERS: ATTEND Urology
DX: N20.0 Calculus of kidney (principal)
CPT/HCPCS: 74176

== ENCOUNTER 2019-08-21 12:13 | Emergency (ER) | payer BC ==
[2019-08-21 12:56] LABS: #Basophils 0.1 thou/uL (0.0-0.2); #Eosinphils 0.1 thou/uL (0.0-0.7); #Monocytes 0.4 thou/uL (0.11-0.59); #Neutrophils 5.4 thou/uL (1.40-6.50); %Basophils 0.8 % (0.0-1.0); %Eosinophils 0.9 % (0.0-10.0); %Lymphocytes 24.9 % (21.0-51.0); %Monocytes 5.3 % (0.0-10.0); %Neutrophils 68.1 % (42.0-75.0); Hemoglobin 14.8 g/dL (12.0-16.0); Mean Corpuscular Hemoglobin 31.6 pg (27.0-31.0); Mean Corpuscular Volume 92.9 fL (78.0-98.0); Mean Platelet Volume 7.3 fL (7.4-10.4); Platelet Count 329 thou/uL (130-400); RBC Distribution Width 11.4 % (11.5-14.5); Red Blood Cell (RBC) Count 4.68 mill/uL (4.20-5.40)
[2019-08-21 13:22] LABS: ALT (SGPT) 8 U/L (8-55); AST (SGOT) 10 U/L (5-34); Albumin 4.4 g/dL (3.5-5.0); Alkaline Phosphatase 68 U/L (40-110); Anion Gap 12 mmol/L (10-20); BUN (Urea Nitrogen) 9 mg/dL (7.0-18.7); Bilirubin, Total 0.8 mg/dL (0.2-1.2); Calc. Creatinine Clearance 0 mL/min (70-130); Calcium 9.5 mg/dL (7.8-10.44); Carbon Dioxide 29 mmol/L (22-29); Chloride 103 mmol/L (98-107); Estimated GFR-MDRD 82; Globulin 2.7 g/dL (2.4-3.5); Glucose 66 mg/dL (70-105); Potassium 4.6 mmol/L (3.5-5.1); Protein, Total 7.1 g/dL (6.0-8.3); Sodium 139 mmol/L (136-145)
[2019-08-21 14:35] LABS: Bilirubin Negative (Negative); Blood, Urine Negative (Negative); Clarity Clear (Clear); Glucose, Urine (Dipstick) Normal (Negative); Leukocyte 250 Leu/uL (Negative); Nitrite Negative (Negative); Protein, Urine (Dipstick) 30 mg/dL (Neg-Trace); RBC/HPF 0-3 HPF (0-3); Squamous Epithelial 0-3 HPF (0-3); Urobilinogen Normal mg/dL (Less than 2)
[2019-08-21 14:39] LABS: Pregnancy Test - Urine (BHCG) Negative (Negative); Pregu Control Background? CLEAR/WHITE (CLR/WHITE); Pregu Control Bar Appear? YES (CONTROL BAR); Specific Gravity 1.027 (1.002-1.036)
[2019-08-21 14:52] LABS: Bacteria/HPF 1+ HPF (None Seen); Mucous/LPF 1+ LPF (<2+)
[2019-08-21] MEDS ORDERED: Ketorolac Tromethamine 30 MG/ML VIAL ONE ×2 (14:54→17:00)
--- NOTE | 2019-08-21 16:01 | ULT ---
TRANSABDOMINAL AND TRANSVAGINAL PELVIC ULTRASOUND WITH SHEA SCALE, COLOR FLOW AND SPECTRAL DOPPLER IM AGIN08/21/19 HISTORY: Pelvic pain. The uterus measures 8.1 x 3.8 x 5.6 cm with a tiny amount of free fluid in the endometrial cavity. Th ere is a hypoechoic mass in the uterus near the fundus measuring 1.1 x 1.5 x 1.7 cm, consistent with fibroid. The endometrium measures 5 mm in thickness. The right ovary is not visualized. The left ovary measures 2.3 x 2.2 x 2.8 cm and demonstrates flow. There is a 1.5 cm cyst in the left ovary. There is shadowing noted in the region of the left adnexa where the patient complains of pain. This likely is due to air in adjacent bowel. No free fluid is seen in the cul-de-sac. IMPRESSION: 1. Uterine fibroid. 2. Nonvisualization of the right ovary. 3. Small left ovarian cyst. 4. Tiny amount of free fluid in the endometrial cavity. POS: [facility]
== END 2019-08-21 17:24 | disposition home or self-care (01) ==
LOC: ERS 12:13
DX: N39.0 Urinary tract infection, site not specified (principal); J45.909 Unspecified asthma, uncomplicated; F31.9 Bipolar disorder, unspecified; F90.9 Attention-deficit hyperactivity disorder, unspecified type; F17.210 Nicotine dependence, cigarettes, uncomplicated; G43.909 Migraine, unspecified, not intractable, without status migrainosus; Z87.442 Personal history of urinary calculi; Z79.891 Long term (current) use of opiate analgesic; Z79.1 Long term (current) use of non-steroidal anti-inflammatories (NSAID)
CPT/HCPCS: 36415; 76856; 80053; 81003; 81015; 81025; 85025; 93005; 96374; 96376; J1885

== ENCOUNTER 2019-09-30 09:51 | Outpatient (CLI) | payer BC ==
--- NOTE | 2019-09-30 12:03 | ULT ---
BILATERAL RENAL ULTRASOUND: Date: 09/30/2019 INDICATION: Renal stones. FINDINGS: Both kidneys measure approximately 10.0 cm in length. No hydronephrosis. An echogenic focus in the mid to upper left kidney is consistent with a tiny calculus measuring in th e 3.0 mm range. No other definite calculus seen by ultrasound. Urinary bladder is mildly distended and unremarkable. IMPRESSION: Evidence of small calculus left renal collecting structures. Renal ultrasound otherwise unremarkable. POS: [facility]
--- NOTE | 2019-09-30 12:18 | RAD ---
SUPINE ABDOMEN: Date: 09/30/2019 HISTORY: Kidney stone. COMPARISON: 04/24/2019. FINDINGS: Bowel content obscures both kidneys. The left kidney is especially obscured by overlying stool. There are some subtle densities seen overlying the mid and lower pole of the left kidney which may corresp ond to the small calcifications seen on recent CT. These are unchanged in appearance from the previou s exam of 04/24/2019. No abnormal calcifications overlie the right renal outline. Post cholecystectomy clips. Bowel gas pattern otherwise unremarkable. IMPRESSION: The left kidney is obscured by overlying stool. Subtle small calcific densities overlie the mid and l ower pole which may correspond to the tiny calcification seen on recent CT. POS: [facility]
== END 2019-09-30 09:52 | disposition home or self-care (01) ==
LOC: BICULT 09:51
PROVIDERS: ATTEND Urology
DX: N20.0 Calculus of kidney (principal); N28.89 Other specified disorders of kidney and ureter
CPT/HCPCS: 74018; 76770

== ENCOUNTER 2020-01-06 13:50 | Outpatient (CLI) | payer BC ==
--- NOTE | 2020-01-06 14:52 | CT ---
ABDOMEN CT WITHOUT CONTRAST PELVIC CT WITHOUT CONTRAST: 01/06/20 HISTORY: Renal calculi. Recurrent kidney stones. Patient has undergone four lithotripsies in the last year. COMPARISON: 05/19/19, 11/20/18. FINDINGS: ABDOMEN CT: Clear lung bases. Normal heart size. Normal caliber aorta. Limited evaluation of the slide organs by the lack of IV contrast. Grossly, no abnormality. No gastrohepatic, retrocrural or periportal lymphadenopathy. Gallbladder is surgically absent. No mesenteric mass, lymphadenopathy, free air or free fluid. Limited evaluation of the alimentary by the lack of oral contrast. No bowel obstruction. Normal calib er appendix. Scattered fecal material in a nondistended, nondilated colon. there are bilateral nonobs tructing intrarenal calculi. The largest calculus is in the lower pole of the left kidney and measure s 0.3 cm in maximum dimension. Bilaterally, no obstructive uropathy. When compared to the previous examination, the overall degree of nephrolithiasis has not significantl y changed. The largest calculus is unchanged from 06/06/19. PELVIC CT: Uterus and adnexal structures are grossly unremarkable. No pelvic mass, lymphadenopathy, free air, or free fluid. Decompressed urinary bladder limits evaluation. No lytic or blastic lesions in the osseous structures. IMPRESSION: Bilateral nonobstructing intrarenal calculi. The overall size and number of calcifications in the lef t intrarenal collecting system has not appreciably changed. POS: [facility]
== END 2020-01-06 13:51 | disposition home or self-care (01) ==
LOC: BICCT 13:50
PROVIDERS: ATTEND Urology
DX: N20.0 Calculus of kidney (principal); N28.89 Other specified disorders of kidney and ureter
CPT/HCPCS: 74176; 81001; 87086

== ENCOUNTER 2020-01-09 05:00 | Emergency (ER) | payer BC ==
[2020-01-09] MEDS ORDERED: Metoclopramide HCl 10 MG/2 ML VIAL ONE (05:15)
[2020-01-09] MEDS ORDERED: Ketorolac Tromethamine 30 MG/ML VIAL ONE (05:15)
[2020-01-09] MEDS ORDERED: diphenhydrAMINE 50 MG/ML VIAL ONE (05:15)
== END 2020-01-09 07:00 | disposition home or self-care (01) ==
LOC: ERS 05:00
DX: R51 Headache (principal); J45.909 Unspecified asthma, uncomplicated; F31.9 Bipolar disorder, unspecified; F90.9 Attention-deficit hyperactivity disorder, unspecified type; F17.210 Nicotine dependence, cigarettes, uncomplicated; Z79.899 Other long term (current) drug therapy
CPT/HCPCS: 96361; 96374; 96375; J1200; J1885; J2765

== ENCOUNTER 2021-03-01 14:20 | Outpatient (CLI) | payer BC | END 2021-03-01 14:21 | disposition home or self-care (01) | LOC: RAD 14:20 | PROVIDERS: ATTEND Urology | DX: N20.0 Calculus of kidney (principal) | CPT/HCPCS: 74018 ==

== ENCOUNTER 2024-06-26 15:18 | Emergency (ER) | payer BC ==
[2024-06-26 16:20] LABS: #Basophils 0.03 10x3/uL (0.0-0.2); %Basophils 0.3 % (0.0-1.0); %Eosinophils 0.8 % (0.0-10.0); %Lymphocytes 20.7 % (21.0-51.0); %Monocytes 6.8 % (0.0-10.0); %Neutrophils 70.9 % (42.0-75.0); Hematocrit 42.1 % (36.0-47.0); Hemoglobin 14.2 g/dL (12.0-16.0); Mean Corpuscular HGB CONC 33.7 g/dL (32.0-36.0); Mean Corpuscular Hemoglobin 29.6 pg (27.0-31.0); Mean Corpuscular Volume 87.9 fL (78.0-98.0); Mean Platelet Volume 9.8 fL (7.4-10.4); Platelet Count 322 10x3/uL (130-400); RBC Distribution Width 12.8 % (11.5-14.5); Red Blood Cell (RBC) Count 4.79 mill/uL (4.20-5.40)
[2024-06-26 16:45] LABS: ALT (SGPT) 75 U/L (8-55); AST (SGOT) 101 U/L (5-34); Alkaline Phosphatase 83 U/L (40-110); Anion Gap 16 mmol/L (10-20); BUN (Urea Nitrogen) 8 mg/dL (7.0-18.7); Bilirubin, Total 0.6 mg/dL (0.2-1.2); Calc. Creatinine Clearance 0 mL/min (70-130); Calcium 9.1 mg/dL (7.8-10.44); Carbon Dioxide 22 mmol/L (22-29); Chloride 104 mmol/L (98-107); Estimated GFR 98; Globulin 3.9 g/dL (2.4-3.5); Glucose 63 mg/dL (70-105); Potassium 3.6 mmol/L (3.5-5.1); Protein, Total 7.9 g/dL (6.0-8.3); Sodium 138 mmol/L (136-145)
[2024-06-26] MEDS ORDERED: Acetaminophen 500 MG TAB ONE (17:18)
[2024-06-26] MEDS ORDERED: HYDROcodone/Acetaminophen 5/325 mg Tablet ONE (17:18)
[2024-06-26] MEDS ORDERED: Ketorolac Tromethamine 30 MG (1 mL) VIAL ONE (17:18)
[2024-06-26 19:23] LABS: Bilirubin Negative (Negative); Blood, Urine Negative (Negative); CAUTI Indications for Culture Pelvic or flank pain; Clarity Clear (Clear); Glucose, Urine (Dipstick) Normal (Negative); Ketone, Urine Negative (Negative); Leukocyte Negative Leu/uL (Negative); Nitrite Negative (Negative); Protein, Urine (Dipstick) Negative (Neg-Trace); RBC/HPF 0-3 HPF (0-3); Specific Gravity, Urine 1.003 (1.002-1.036); Squamous Epithelial 0-3 HPF (0-3); Urobilinogen Normal mg/dL (Less than 2); WBC/HPF 0-3 HPF (0-3)
[2024-06-26 19:24] LABS: Bacteria/HPF 1+ HPF (None Seen)
[2024-06-26 19:25] LABS: Urine Culture Reflex No No
[2024-06-26 19:31] LABS: Pregnancy Test - Urine (BHCG) Negative (Negative); Pregu Control Background? CLEAR/WHITE (CLR/WHITE); Pregu Control Bar Appear? YES (CONTROL BAR); Specific Gravity 1.003 (1.002-1.036)
== END 2024-06-26 20:14 | disposition home or self-care (01) ==
LOC: ERS 15:18
DX: R55 Syncope and collapse (principal); S90.32XA Contusion of left foot, initial encounter; S90.31XA Contusion of right foot, initial encounter; F17.210 Nicotine dependence, cigarettes, uncomplicated; W18.30XA Fall on same level, unspecified, initial encounter
CPT/HCPCS: 70450; 70486; 80053; 81001; 81025; 85025; 93005; 96374; J1885